=== PATIENT | female | born 1990 | race African-American/Black ===

== ENCOUNTER 2017-01-25 02:32 | Inpatient (IN) | payer OTHER ==
[~2017-01-25] VITALS: Ht 152.4 cm; Wt 79.8 kg
--- NOTE | ~2017-01-25 | DS ---
Unit #: [id number] #: [id number] Patient: RENARD CORTES [id number] [address] [address] [id number] I MR#: [id number] NAME: RENARD CORTES ROOM: [facility] Age: 26 Sex: F Admission Date: 01/25/2017 : 1990 Discharge Date: Attending Physician: Lilo Cordova M.D. Primary Care Physician: Mathew Kitchen M.D. DISCHARGE SUMMARY DISCHARGE DIAGNOSES 1. Intractable nausea, vomiting, and diarrhea; likely from gastroenteritis. Also might have positional vertigo and vomiting from it. 2. Abdominal pain. CT abdomen negative. EGD negative. 3. Microscopic microcytic anemia, likely mild iron deficiency. 4. Smoking. 5. Hypertension, uncontrolled. 6. Hypoglycemia from low p.o. intake. CONSULTATIONS 1. Dr. Alejandro Simpson. 2. Dr. Cota. PROCEDURES Patient had EGD, which was negative. DIAGNOSTIC STUDIES LAB DATA: Magnesium 1.9, sodium 135, potassium 4.2, and creatinine 0.7. Liver enzymes normal. WBC 8.6, hemoglobin 13.3, and platelets 206. IMAGING: CT of the abdomen and pelvis shows negative. ALLERGIES None. DISCHARGE MEDICATIONS 1. Meclizine 25 mg p.o. 3 times daily. 2. Zofran 4 mg q.6 p.r.n. nausea. 3. Hydralazine 25 p.o. b.i.d. HOSPITALIZATION COURSE This is a 26-year-old admitted because of intractable nausea and vomiting. 1. Intractable nausea, vomiting and diarrhea and abdominal pain. Likely from gastroenteritis, viral. Also, she does have positional vomiting likely from vertigo. Got better with meclizine so she will continue with Zofran and meclizine and follow with PCP with the followup. 2. Hypertension, uncontrolled. Patient received IV hydralazine during the hospitalization course. Patient will be discharged on p.o. hydralazine. DISCHARGE INSTRUCTIONS 1. Discharged home. Unit #: [id number] #: [id number] Patient: RENARD CORTES 2. Follow up with family physician in one week time. Dictated by... Brigitte Nina/yunior TD: 01/29/2017 11:41 JOB #: [id number] DISCHARGE SUMMARY Page 1 of 1 X Lilo Cordova MD DISCHARGE SUMMARY
--- NOTE | ~2017-01-25 | CT4 ---
[facility] A Service of [facility] RADIOLOGY TEXT RESULTS PATIENT: RENARD CORTES LOCATION: C2A 229- : [birth year] UNIT #: [id number] AGE: [address]: Florence Vasquez MD SEX: F ORDER DR: [id number] [facility] [address] [facility]. [place], [place] [address] [id number] I MR#: [id number] Acc #: [id number] NAME: RENARD CORTES : 1990 SEX: F STUDY DATE/TIME: 01/25/2017 5:20 UNIT: CEDOF ROOM: [id number] STUDY DESCRIPTION: CT Abd and Pelv Wo Cont Attending Physician: Florence Vasquez M.D. Ordering Physician: Giorgio Braswell M.D. Primary Care Physician: Mathew Kitchen M.D. MEDICAL IMAGING REPORT This report is preliminary unless electronic signature is present EXAM CT abdomen and pelvis without contrast. DATE 01/25/2017 HISTORY Nausea, weakness, generalized abdominal pain. Unable to keep anything down since [address] abdomen and pelvis with contrast 08/11/2009. PROCEDURE 3 mm noncontrast axial images through the abdomen and pelvis. Enteric contrast was not administered. Sagittal and coronal reformatted images were obtained. This CT exam was performed with one or more of the following radiation dose reduction techniques: automatic exposure control, adjustment of mA and/or kV according to patient size, and iterative reconstruction. FINDINGS ABDOMEN FINDINGS: Lung bases are free of consolidation. Noncontrast appearance of the liver, gallbladder, spleen, pancreas, adrenal and kidneys within normal limits. No urinary tract stone or hydronephrosis. The appendix is not visualized but no pericecal inflammation is seen. PELVIS FINDINGS: Trace free fluid in the pelvic cul-de-sac. Urinary bladder and rectum are normal. IMPRESSION 1. Trace free fluid in the pelvic cul-de-sac is nonspecific and may be [facility] RADIOLOGY TEXT RESULTS PATIENT: RENARD CORTES LOCATION: C2Romi 229- : [birth year] UNIT #: [id number] AGE: [address]: Florence Vasquez MD SEX: F ORDER DR: physiologic. 2. Otherwise, no acute findings in the abdomen or pelvis. The appendix is not visualized but no pericecal inflammation is seen. Dictated by... Gloria Tillman M.D. THIS IS AN ELECTRONICALLY VERIFIED REPORT Gloria Tillman M.D. at 01/25/2017 9:59 PM [facility]/imer TD: 01/25/2017 12:20 JOB #: [id number] MEDICAL IMAGING REPORT Page 1 of 1 COPY
--- NOTE | ~2017-01-25 | HP ---
Unit #: [id number] #: [id number] Patient: RENARD CORTES [id number] [address] [facility]. [place], [place] [address] [id number] I MR#: [id number] NAME: RENARD CORTES ROOM: 229 Age: 26 Sex: F Admission Date: 01/25/2017 : 1990 Attending Physician: Florence Vasquez M.D. Primary Care Physician: Mathew Kitchen M.D. HISTORY AND PHYSICAL CHIEF COMPLAINT Abdominal pain, nausea, vomiting. HISTORY OF PRESENT ILLNESS The patient is a 26-year-old female with no significant past medical history, who presented to the emergency department for evaluation of the above. The patient states that she was in her usual state of health until the afternoon prior to admission when she developed abdominal pain, nausea, vomiting, and diarrhea. The abdominal pain is "everywhere." She describes it as "pain." There are no exacerbating or alleviating factors. She denies any similar pain. She states that she developed the pain after eating pizza. Others that ate the pizza are not ill. She has had more than 10 bouts of nonbloody emesis and more than 10 bouts of nonbloody diarrhea within the past 24 hours. She denies any fever. No cough or cold symptoms. No urinary symptoms. She has not been on any antibiotics. No recent travel. In the emergency department, a CT of the abdomen and pelvis was done and showed no acute abnormality. Laboratory notable for urine showing 2+ ketones. She was given 2 L of normal saline as well as a total of 8 mg of Zofran, 4 mg of morphine, 20 mg of Protonix, 25 mg of Phenergan in the emergency department. She is being admitted to [facility] for evaluation and further treatment. PAST MEDICAL HISTORY The patient denies hospitalizations other than for . PAST SURGICAL HISTORY None. SOCIAL HISTORY The patient lives with her boyfriend and two of her three children. She smokes a pack of cigarettes a week. She denies alcohol or illicit drug use. She has previously worked at [employer] but is not working at the present time. FAMILY HISTORY Notable for her maternal grandmother having diabetes. ALLERGIES None. Unit #: [id number] #: [id number] Patient: RENARD CORTES HOME MEDICATIONS None. REVIEW OF SYSTEMS A complete review of systems is negative except as indicated in the HPI. The patient denies ever having endoscopy. DIAGNOSTIC STUDIES LABORATORY: Urinalysis notable for 1+ protein, 3+ blood, 5-10 red blood cells, 1+ bacteria. Comprehensive metabolic panel notable for glucose of 132. Amylase and lipase are normal. Complete blood count notable for hemoglobin and hematocrit of 11.6 and 37 respectively. MCV 73, RDW 14.9. IMAGING: CT of the abdomen and pelvis shows nothing acute. PHYSICAL EXAMINATION VITAL SIGNS: Temperature is 98.3, pulse 51, respirations 16, blood pressure 138/111 (most recently 145/65), oxygen saturation 100% on room air. GENERAL: The patient is a very pleasant -Hong Konger female who is awake and alert in no acute distress. HEENT: The head is atraumatic. Mucous membranes are dry. NECK: Supple. Trachea is midline. CARDIOVASCULAR: Regular rate and rhythm. LUNGS: Clear to auscultation bilaterally with no increased work of breathing. ABDOMEN: Soft, nontender with bowel sounds present in all four quadrants. EXTREMITIES: Nontender with no pedal edema. NEUROLOGIC: The patient is awake and alert. She follows commands. PSYCHIATRIC: Mood and affect are normal. The patient is cooperative. SKIN: Skin of examined areas is warm and dry. ASSESSMENT The patient is a 26-year-old female with: 1. Intractable nausea, vomiting, and diarrhea. 2. Abdominal pain with negative CT of the abdomen and pelvis. 3. Microcytic anemia: The patient's hemoglobin is 11.6 with no baseline for comparison. 4. Tobacco abuse. PLAN 1. Admit to med/surg for observation. 2. Normal saline at 125 mL/hr. 3. Clear liquids as tolerated. 4. P.r.n. Toradol. 5. P.r.n. Zofran. 6. Stool for ova and parasites, Clostridium difficile, culture and sensitivity. 7. Urine culture and sensitivity on urine in the lab. 8. Urine test if not done. 9. Repeat labs in the morning. 10. Sequential compression devices for deep venous thrombosis prophylaxis. 11. Additional workup and consultants based on above. Unit #: [id number] #: [id number] Patient: RENARD CORTES Dictated by Florence Vasquez M.D. Alejandro TD: 01/25/2017 13:46 JOB #: [id number] HISTORY AND PHYSICAL Page 1 of 1 X Florence Vasquez MD HISTORY AND PHYSICAL
--- NOTE | ~2017-01-25 | CO ---
Unit #: [id number] #: [id number] Patient: RENARD CORTES [id number] [facility]. [place] [address] [facility]. [place], [place] [address] [id number] I MR#: [id number] NAME: RENARD CORTES ROOM: 307 Age: 26 Sex: F Admission Date: 01/25/2017 : 1990 Attending Physician: Lilo Cordova M.D. Primary Care Physician: Mathew Kitchen M.D. CONSULTATION REPORT REASON FOR CONSULTATION Bradycardia. HISTORY OF PRESENT ILLNESS This is a pleasant 26-year-old -[place]i female with no significant past medical history. She presented to the emergency room with complaints of abdominal pain, nausea, vomiting, diarrhea, and chills. She reports to me that this has been occurring since Wednesday about 5:00 p.m. She states she has not been able to keep anything down. CT scan was performed of the abdomen and pelvis, which showed no acute abnormality. We were asked to see the patient secondary to bradycardia. Telemetry strips were reviewed and showed sinus bradycardia with some transient episodes of what appears to be paroxysmal SVT. There was no evidence of high grade AV block or junctional rhythm. The patient does report episode issues with palpitations to me for the last three months. She denies any shortness of breath, chest pain, or syncopal episodes. There is no family history of sudden cardiac . The patient has continued to have vomiting issues and reports the room spinning. She is not on any home medications. Denies any amphetamine use, does drink caffeine frequently. At present she is resting in bed. She is still having episodes of vomiting with bilious emesis and gastroenterology has been asked to evaluate. The patient is also getting ready to go off the floor for PICC placement per interventional radiology. Also the emesis is nonbloody and denies fever. PAST MEDICAL HISTORY No reported past medical history. PAST SURGICAL HISTORY No reported surgeries. SOCIAL HISTORY The patient lives with her boyfriend and her kids. She is a smoker and reports a pack of cigarettes a week. Denies illicit drugs or alcohol; however, her drug talks is positive for THC. She is currently not working. FAMILY HISTORY Negative for coronary artery disease or sudden cardiac . ALLERGIES No known drug allergies. HOME MEDICATIONS Unit #: [id number] #: [id number] Patient: RENARD CORTES None reported. REVIEW OF SYSTEMS Negative except for as stated in the HPI. PHYSICAL EXAMINATION VITAL SIGNS: Temperature is 98.2, pulse 50, respirations 16 to 18, blood pressure 134/54 to 185/92. GENERAL: This is a pleasant -[place]i female who is in no acute distress. She does continue to vomit bilious emesis. HEENT: Head is atraumatic and normocephalic. Pupils equal and round. Mucous membranes are dry. NECK: Trachea is midline, supple, no lymphadenopathy or thyromegaly. CARDIOVASCULAR: S1 and S2. Regular rate and rhythm. No murmur, gallop, or rub. LUNGS: Clear to auscultation. No adventitious breath sounds. No rales or rhonchi. No wheezes. ABDOMEN: Soft, nontender, nondistended. Bowel sounds are present. EXTREMITIES: Pulses are palpable. No clubbing, cyanosis or edema. NEUROLOGIC: Patient is awake, alert and oriented. She follows commands. She moves all extremities equally. DIAGNOSTIC STUDIES LABORATORY STUDIES: Sodium 139, potassium 4.2, chloride 111, CO2 24, BUN 8, creatinine 0.7, glucose is 83, magnesium is 1.6, LFTs were normal. screen was negative. Urine tox was positive for THC. Hemoglobin 10.7, hematocrit 34.0, WBC 7.5, platelet count 1.92. IMAGING STUDIES: CT of the abdomen and pelvis shows no acute abnormality. CARDIOVASCULAR STUDIES: EKG shows normal sinus rhythm rate of 47 BPM. No acute ischemic change. QTC interval is 391 msec. IMPRESSION 1. Abdominal pain with intractable nausea and vomiting with normal CT scan. 2. Diarrhea, which is now resolved per the patient. 3. Sinus bradycardia with intermittent paroxysmal supraventricular tachycardia episodes. 4. History of palpitations for the last three months. 5. Tobacco abuse. 6. Microcytic anemia. 7. Questionable vertigo. PLAN The patient has been admitted secondary to abdominal pain and intractable nausea and vomiting. Her CT scan was unremarkable. We were asked to see the patient secondary to sinus bradycardia. Her telemetry strips have been reviewed, which shows no evidence of high grade AV block or junctional rhythm. On telemetry she does appear to be having some intermittent episodes of PSVT and a history of palpitations. At this time will check a TSH level, as well as a 2D echocardiogram. The patient's blood pressure is slightly elevated, however, this may be attributed secondary to her continued nausea and vomiting. She does have IV hydralazine if necessary for systolic blood pressure greater than 160. At this time will also try meclizine, as Dr. Cota feels that her symptoms may be related to vertigo. Her atrial arrhythmias maybe secondary to nausea and vomiting; however, the patient does report to me that she has Unit #: [id number] #: [id number] Patient: RENARD CORTES been having these for the past three months. The patient would benefit from outpatient Holter monitor at discharge. Further recommendations pending Dr. Cota's assessment. Dictated by... Sarahy MuñozRSchuyler for Dionna Cota M.D. LMW/ts TD: 01/28/2017 07:47 JOB #: [id number] CC: [facility] CONSULTATION REPORT Page 1 of 1 X Katharina Delgado APRN X CONSULTATION REPORT
--- NOTE | ~2017-01-25 | CO ---
Unit #: [id number] #: [id number] Patient: RENARD EPSTEIN [id number] [address] [address] [id number] I MR#: [id number] NAME: RENARD EPSTEIN ROOM: [facility] Age: 26 Sex: F Admission Date: 01/25/2017 : 1990 Attending Physician: Lilo Cordova M.D. Primary Care Physician: Mathew Kitchen M.D. Consultation Date: 01/27/2017 CONSULTATION REPORT ATTENDING PHYSICIAN Dr. Florence Vasquez REASON FOR CONSULTATION Intractable nausea, vomiting, abdominal pain and diarrhea. HISTORY Ms. Epstein is a 26-year-old -Cam[place]onian female who was admitted through the emergency room with above symptoms. These have been present for the past four to five days with acute onset. Patient had significant watery, non-bloody diarrhea along with cramping pain in the left and right lower abdomen. In addition, she also mentions she had epigastric pain along with nausea and vomiting and dyspeptic symptoms, all for the same duration. She attributes this symptom with eating out. Nobody else was sick at home. Since after admission, she hasn't had any bowel movements and diarrhea has since resolved but she is still severely nauseated. Her initial evaluation shows a normal CAT scan in the emergency room and urinalysis shows 2+ ketones indicating volume depletion. She has no significant past medical history. No previous abdominal surgeries. SOCIAL HISTORY She lives with her boyfriend and two of her three children. Smokes a pack of cigarettes daily, does not drink alcohol. She is not working. FAMILY HISTORY None of colon or pancreatic cancer or liver disease. HOME MEDICATIONS None. ALLERGIES None. REVIEW OF SYSTEMS A detailed review of organ systems does not reveal any recent weight loss. No history of fever, chills or rigors. No diagnosis of headache, seizures, chest pain or syncope. No history of cough, expectoration or hemoptysis. No history of dysuria, hematuria or pyuria. No history of focal seizures or extremity weakness. The rest of the review of organ systems is unremarkable. PHYSICAL EXAMINATION Unit #: [id number] #: [id number] Patient: RENARD EPSTEIN GENERAL APPEARANCE: She is awake, alert and oriented, appears comfortable. She is still quite nauseated. VITAL SIGNS: Vital signs are stable with a temperature of 98.9, pulse is 45/minute and regular, respiratory rate is 16, blood pressure is 188/98. She weights 182 pounds which is close to her baseline weight. She has no pallor, icterus, lymphadenopathy or peripheral edema. CARDIOVASCULAR EXAMINATION: Normal heart sounds. No murmurs. LUNGS: Auscultation of the lungs reveals normal breath sounds. Good air entry. ABDOMEN: Soft, obese. Liver and spleen are not palpable. Bowel sounds normal. DIAGNOSTIC STUDIES LABORATORY: Lab evaluation shows a completely normal serum chemistry except for a glucose of 132 yesterday. LFTs, electrolytes, BUN and creatinine are all normal. CBC shows a hemoglobin of 10.7, baseline 11.6. White count and platelet count are normal. A urinalysis shows 3+ ketones. Tox screen is positive for marijuana. IMAGING: Patient's CT scan of the abdomen and pelvis is also normal. CLINICAL IMPRESSION Most likely etiology of patient's presentation is acute gastroenteritis. Supportive and symptomatic treatment is in order. We will resume her diet. If she is unable to tolerate the diet, will consider diagnostic endoscopy tomorrow. Pros and cons of the procedure and its potential risks and complications including possibly a perforation were discussed with patient and she was reassured. Thank you very much for asking me to see this pleasant youngster and I appreciate the consult. Dictated by.Hilton. Brigitte Ardon/jake TD: 01/29/2017 08:33 JOB #: [id number] CONSULTATION REPORT Page 1 of 1 X Alejandro Simspon MD X CONSULTATION REPORT
--- NOTE | ~2017-01-25 | OR ---
Unit #: [id number] #: [id number] Patient: RENARD CORTES [id number] [address] [address] [id number] I MR#: [id number] NAME: RENARD CORTES ROOM: 307 Date of Procedure: 01/28/2017 Admission Date: 01/25/2017 Surgeon: Alejanrdo Simpson M.D. : 1990 Attending Physician: Lilo Cordova M.D. Primary Care Physician: Mathew Kitchen M.D. OPERATIVE REPORT PRIMARY CARE PHYSICIAN Mathew Kitchen M.D. PREOPERATIVE DIAGNOSES Nausea, vomiting, and epigastric pain. PROCEDURE PERFORMED Upper gastrointestinal endoscopy. POSTOPERATIVE DIAGNOSIS Completely normal examination up to third part of duodenum. RECOMMENDATIONS Supportive and symptomatic treatment are in order. SEDATION USED MAC. DESCRIPTION OF PROCEDURE Following detailed explanation of the potential risks and complications of an upper endoscopy, namely perforation, bleeding, complication related to sedation, the patient was brought to GI lab and laid in the left lateral decubitus position. Lubricated tip of the Olympus video upper endoscope was passed through the bite block into the proximal esophagus under direct vision. The entire esophageal mucosa was examined and appeared normal. Z-line was nicely demarcated, there being no esophagitis or hiatus hernia. The scope was then advanced into the gastric cavity and the latter was insufflated. Mucosa of the fundus, body, and antrum was examined and appeared unremarkable. Pylorus was intubated with visualization of the normal duodenal bulb and second and third part of the duodenum. Upon withdrawal and retroflexion, incisura, cardia, and greater curve examined and no additional findings noted. The scope was then withdrawn in the distal esophagus. The entire esophageal mucosa was examined all the way up to pharynx. No additional findings noted. The patient tolerated the procedure without any postprocedure complications. Dictated by... Brigitte Ardon/mark Unit #: [id number] #: [id number] Patient: RENARD CORTES TD: 02/23/2017 06:13 JOB #: [id number] OPERATIVE REPORT Page 1 of 1 X Alejandro Simpson MD PROCEDURE OPERATIVE NOTE
--- NOTE | ~2017-01-25 | XA166 ---
[facility] A Service of [facility] & [facility] RADIOLOGY TEXT RESULTS PATIENT: RENARD CORTES LOCATION: C3A - : [birth year] UNIT #: [id number] AGE: [address]: Lilo Cordova MD SEX: F ORDER DR: [id number] [id number] [facility]. [place], [place] [address] [id number] I MR#: [id number] Acc #: [id number] NAME: RENARD CORTES : 1990 SEX: F STUDY DATE/TIME: 01/27/2017 14:32 UNIT: C3A PCU ROOM: [facility] STUDY DESCRIPTION: XA PICC Line Placement WO Port Attending Physician: Lilo Cordova M.D. Ordering Physician: Steve Waggoner M.D. Primary Care Physician: Mathew Kitchen M.D. MEDICAL IMAGING REPORT This report is preliminary unless electronic signature is present EXAM PICC line placement. INDICATION Need for IV access in a patient with nausea and vomiting. This patient had an attempted PICC line placement by the PICC line nurse but reported that she had significant pain with that PICC line placement and asked that it be removed. PRE-PROCEDURE The procedure was explained to the patient and/or patient retail representative including risks, benefits, potential complications and potential for alternative forms of treatment. Informed consent was obtained, and prior to initiating the procedure a formal timeout procedure was performed. PROCEDURE Using full standard sterile barrier technique, including caps, gowns, gloves, masks, as well as sterile skin preparation and standard sterile draping, the arm was prepped and draped in the usual fashion, and real-time sterile ultrasound guidance was used to localize an arm vein and to confirm vessel patency. A hard copy ultrasound image was recorded. After local anesthesia with 1% Xylocaine, the vein was punctured using real-time sterile ultrasound guidance, and an 0.018 guidewire was advanced into the superior vena cava, using fluoroscopic guidance. A 5-Italian dual-lumen PICC was then measured and deployed with the tip positioned in the superior vena cava. The position of the line was documented with a radiographic image. The line was secured in place with an adhesive dressing and an antibiotic patch was applied. Total fluoro time was 0.1 minutes. AK was 1 mGy. IMPRESSION Successful placement of a 5-Italian dual-lumen PowerPICC via the arm under STS. [facility] A Service of [facility] & [facility] RADIOLOGY TEXT RESULTS PATIENT: RENARD CORTES LOCATION: C3A 307-01 : [birth year] UNIT #: [id number] AGE: [address]: Lilo Cordova MD SEX: F ORDER DR: ultrasound and fluoroscopic guidance. The tip of the PICC is in good position in the superior vena cava. Dictated by... Ginette Lazo M.D. THIS IS AN ELECTRONICALLY VERIFIED REPORT Ginette Lazo M.D. at 01/28/2017 4:45 PM ELDON/imer TD: 01/28/2017 09:09 JOB #: [id number] MEDICAL IMAGING REPORT Page 1 of 1 COPY
--- NOTE | ~2017-01-25 | EKG ---
PATIENT: RENARD CORTES UNIT #: [id number] Ventricular Rate: 47 BPM Atrial Rate: 47 BPM P-R Interval: 156 ms QRS Duration: 90 ms Q-T Interval: 442 ms QTC Calculation(Bezet): 391 ms P [place]: 29 degrees Calculated R [place]: 83 degrees Calculated T [place]: 42 degrees Diagnosis Line: Sinus bradycardia Diagnosis Line: Otherwise normal ECG Diagnosis Line: No previous ECGs available Diagnosis Line: Confirmed by CURTIS JARVIS MD ([id number]) on Diagnosis Line: 01/27/2017 2:15:43 PM INTERPRETING MD: MATHEUS JAVIER
[2017-01-25 04:28] LABS: URINE SOURCE CLEAN CATCH
[2017-01-25 04:34] LABS: URINE APPEARANCE TURBID; URINE BILIRUBIN NEG (NEG); URINE BLOOD 3+ (NEG); URINE COLOR YELLOW; URINE GLUCOSE NEG (NEG); URINE KETONE 2+ (NEG); URINE LEUKOCYTE ESTERASE NEG (NEG); URINE NITRATE NEG (NEG); URINE PROTEIN 1+ (NEG); URINE SPECIFIC GRAVITY 1.024 (1.003-1.035); URINE UROBILINOGEN 0.2 MG/DL (NEG)
[2017-01-25 04:38] LABS: BASOPHIL% 0.6 % (0-2.5); EOSINOPHIL% 0.3 % (0.0-7.0); HEMOGLOBIN 11.6 gm/dL (12.0-16.0); LYMPHOCYTE# 1.1 X10e3 (1.0-3.5); LYMPHOCYTE% 16.9 % (17.0-45.0); MEAN CORPUSCULAR HEMOGLOBIN 22.9 PG (28-34); MEAN CORPUSCULAR HGB CONC 31.3 g/dL (30-36); MEAN PLATELET VOLUME 8.5 FL (6.5-11.5); MONOCYTE# 0.3 X10e3 (0-1.0); MONOCYTE% 4.5 % (3.0-12.0); NEUTROPHIL# 5.3 X10e3 (1.5-7.1); NEUTROPHIL% 77.7 % (40-75); RED BLOOD COUNT 5.07 X10e (3.90-5.30); RED CELL DISTRIBUTION WIDTH 14.9 % (11.0-15.5); WHITE BLOOD COUNT 6.8 X10e3 (4.0-10.5)
[2017-01-25 04:39] LABS: CULTURE INDICATED? YES; URINE BACTERIA AUWI 1+ (NEGATIVE); URINE SQUAMOUS EPITHELIAL CELL FEW /[HPF]; UWBCS1 AUWI 0-2 (0-5)
[2017-01-25 04:59] LABS: URINE AMORPHOUS SEDIMENT AMORP PHOSPHATES
[2017-01-25 05:02] LABS: ALBUMIN SERUM 4.6 g/dL (3.5-5.0); BILIRUBIN, DIRECT 0.1 mg/dL (0.0-0.2); BILIRUBIN,INDIRECT 0.3 mg/dL (0.0-0.9); BILIRUBIN,TOTAL 0.4 mg/dL (0.2-2.0); BUN/CREATININE RATIO 8.57; CALCIUM SERUM 9.4 mg/dL (8.4-10.2); CREATININE SERUM 0.7 mg/dL (0.6-1.4); GLOM FILT RATE Estimated 136.7 mL/min (>60); POTASSIUM 3.9 mmol/L (3.5-5.1); PROTEIN TOTAL SERUM 7.4 g/dL (6.0-8.3)
[2017-01-25 05:04] LABS: DIFF IND NO; PLATELET COUNT 207 X10e3 (140-420)
[2017-01-25 15:25] LABS: URINE APPEARANCE CLEAR; URINE BILIRUBIN NEG (NEG); URINE BLOOD TRACE (NEG); URINE COLOR YELLOW; URINE GLUCOSE NEG (NEG); URINE KETONE 3+ (NEG); URINE LEUKOCYTE ESTERASE NEG (NEG); URINE NITRATE NEG (NEG); URINE PH 6.5 (5-8); URINE PROTEIN TRACE (NEG); URINE SPECIFIC GRAVITY 1.023 (1.003-1.035); URINE UROBILINOGEN 0.2 MG/DL (NEG)
[2017-01-25 15:28] LABS: URINE BACTERIA AUWI NEG (NEGATIVE); URINE SQUAMOUS EPITHELIAL CELL FEW /[HPF]
[2017-01-26 06:07] LABS: HEMATOCRIT 33.8 % (35.0-45.0); HEMOGLOBIN 10.6 gm/dL (12.0-16.0); MEAN CELL VOLUME 72.8 FL (83-96); MEAN CORPUSCULAR HEMOGLOBIN 22.8 PG (28-34); MEAN CORPUSCULAR HGB CONC 31.3 g/dL (30-36); MEAN PLATELET VOLUME 8.7 FL (6.5-11.5); RED BLOOD COUNT 4.65 X10e (3.90-5.30); RED CELL DISTRIBUTION WIDTH 14.8 % (11.0-15.5); WHITE BLOOD COUNT 8.3 X10e3 (4.0-10.5)
[2017-01-26 06:36] LABS: ALBUMIN SERUM 3.6 g/dL (3.5-5.0); BILIRUBIN,TOTAL 0.9 mg/dL (0.2-2.0); CALCIUM SERUM 8.4 mg/dL (8.4-10.2); CREATININE SERUM 0.8 mg/dL (0.6-1.4); GLOM FILT RATE Estimated 116.4 mL/min (>60); POTASSIUM 3.2 mmol/L (3.5-5.1)
[2017-01-27 05:25] LABS: HEMOGLOBIN 10.7 gm/dL (12.0-16.0); MEAN CELL VOLUME 72.6 FL (83-96); MEAN CORPUSCULAR HEMOGLOBIN 22.9 PG (28-34); MEAN CORPUSCULAR HGB CONC 31.6 g/dL (30-36); MEAN PLATELET VOLUME 8.3 FL (6.5-11.5); RED BLOOD COUNT 4.68 X10e (3.90-5.30); RED CELL DISTRIBUTION WIDTH 14.8 % (11.0-15.5); WHITE BLOOD COUNT 7.5 X10e3 (4.0-10.5)
[2017-01-27 06:15] LABS: ALBUMIN SERUM 3.4 g/dL (3.5-5.0); BUN/CREATININE RATIO 11.42; CALCIUM SERUM 8.6 mg/dL (8.4-10.2); CREATININE SERUM 0.7 mg/dL (0.6-1.4); GLOM FILT RATE Estimated 136.7 mL/min (>60); MAGNESIUM 1.6 mg/dL (1.6-3.0); POTASSIUM 4.2 mmol/L (3.5-5.1); PROTEIN TOTAL SERUM 5.5 g/dL (6.0-8.3)
[2017-01-27 11:50] LABS: AMPHETAMINE NEG (NEG); BARBITURATES NEG (NEG); BENZODIAZEPINES NEG (NEG); COCAINE NEG (NEG); MARIJUANA POS (NEG); OPIATES NEG (NEG); TRICYCLIC ANTIDEPRESSANTS NEG (NEG); U METHADONE NEG (NEG)
[2017-01-28 05:24] LABS: HEMATOCRIT 40.1 % (35.0-45.0); HEMOGLOBIN 12.6 gm/dL (12.0-16.0); MEAN CELL VOLUME 72.5 FL (83-96); MEAN CORPUSCULAR HEMOGLOBIN 22.8 PG (28-34); MEAN CORPUSCULAR HGB CONC 31.4 g/dL (30-36); MEAN PLATELET VOLUME 8.7 FL (6.5-11.5); RED BLOOD COUNT 5.53 X10e (3.90-5.30); RED CELL DISTRIBUTION WIDTH 14.2 % (11.0-15.5); WHITE BLOOD COUNT 10.1 X10e3 (4.0-10.5)
[2017-01-28 06:16] LABS: ALBUMIN SERUM 4.1 g/dL (3.5-5.0); BILIRUBIN,TOTAL 1.1 mg/dL (0.2-2.0); BUN/CREATININE RATIO 7.14; CREATININE SERUM 0.7 mg/dL (0.6-1.4); GLOM FILT RATE Estimated 136.7 mL/min (>60); POTASSIUM 4.5 mmol/L (3.5-5.1); PROTEIN TOTAL SERUM 6.7 g/dL (6.0-8.3)
[2017-01-29 05:34] LABS: HEMATOCRIT 41.8 % (35.0-45.0); HEMOGLOBIN 13.3 gm/dL (12.0-16.0); MEAN CORPUSCULAR HEMOGLOBIN 22.9 PG (28-34); MEAN CORPUSCULAR HGB CONC 31.8 g/dL (30-36); MEAN PLATELET VOLUME 8.3 FL (6.5-11.5); RED BLOOD COUNT 5.8 X10e (3.90-5.30); RED CELL DISTRIBUTION WIDTH 14.9 % (11.0-15.5); WHITE BLOOD COUNT 8.6 X10e3 (4.0-10.5)
[2017-01-29 06:11] LABS: ALBUMIN SERUM 3.9 g/dL (3.5-5.0); BILIRUBIN,TOTAL 1.3 mg/dL (0.2-2.0); BUN/CREATININE RATIO 8.57; CALCIUM SERUM 9.1 mg/dL (8.4-10.2); CREATININE SERUM 0.7 mg/dL (0.6-1.4); GLOM FILT RATE Estimated 136.7 mL/min (>60); POTASSIUM 4.2 mmol/L (3.5-5.1); PROTEIN TOTAL SERUM 6.6 g/dL (6.0-8.3)
[2017-01-29] MEDS ORDERED: MECLIZINE HCL25 M1 PO (12:48)
[2017-01-29] MEDS ORDERED: ZOFRAN ODT4 M1 PO (12:48)
[2017-01-29] MEDS ORDERED: HYDRALAZINE HCL25 MG PO (12:49)
== END 2017-01-29 13:55 | disposition home or self-care (01) | DRG 392 ==
LOC: CED 02:32 → CEDOF 10:17 → C3A PCU 10:17 → CED 10:17 → C2A 10:17 → CEDOF 10:39 → CED 10:39 → C2A 13:37 → CEDOF 13:37 → C2A 01-26 08:18 → C3A PCU 01-26 12:08 → C2A 01-26 12:08 → C3A PCU 01-28 07:50
PROVIDERS: Emergency Medicine; Family Medicine; Internal Medicine; Internal Medicine Gastroenterology
PROC: B24BYZZ Ultrasonography of Heart with Aorta using Other Contrast (ICD-10-PCS; 2017-01-28)
PROC: 0DJ08ZZ Inspection of Upper Intestinal Tract, Via Natural or Artificial Opening Endoscopic (ICD-10-PCS; principal; 2017-01-28 15:06)
DX: A08.4 Viral intestinal infection, unspecified (principal); I47.1 Supraventricular tachycardia; I10 Essential (primary) hypertension; R63.0 Anorexia; D50.9 Iron deficiency anemia, unspecified; F17.210 Nicotine dependence, cigarettes, uncomplicated; G43.A1 Cyclical vomiting, in migraine, intractable; F12.10 Cannabis abuse, uncomplicated; R00.1 Bradycardia, unspecified; N89.8 Other specified noninflammatory disorders of vagina; R42 Dizziness and giddiness; E16.2 Hypoglycemia, unspecified
CPT/HCPCS: 36415; 74176; 76937; 77001; 80048; 80053; 80076; 80307; 81003; 82150; 82728; 83021; 83540; 83550; 83690; 83735; 84443; 84703; 85014; 85018; 85025; 85027; 85041; 87086; 93005; 93306; 96361; 96372; 96374; 96375; 96376; 99285; C1751; C9113; J1885; J2270; J2405; J2550; J3475; J3480